=== PATIENT | female | born 2000 | race Caucasian/White ===

== ENCOUNTER 2023-02-17 14:13 | Emergency (ER) | payer BC, SELFPAY ==
[2023-02-17 14:24] VITALS: BP 115/68; PULSE 90; RESP 20; TEMP 37.1; O2SAT 99
[2023-02-17 14:50] LABS: Bilirubin Negative (Negative); Blood Moderate (Negative); Clarity Cloudy (Clear); Glucose Negative (Negative); Ketones Negative (Negative); Leukocyte Esterase Negative (Negative); Nitrite Positive (Negative); Specific Gravity >= 1.030 (1.005-1.025)
--- NOTE | 2023-02-17 14:56 | ED.GENADUL_ITS ---
Discharge Plan Disposition Patient Disposition: Home Condition: Stable Discharge Details Clinical Impression: UTI (urinary tract infection) Primary Care Provider: Parris,Local ED Provider: Pako Mix Home Meds and New Rx's Prescriptions: New cephalexin 250 mg/5 mL suspension for reconstitution 500 mg PO QID 3 Days Qty: 120 0RF Discharge Instructions Instructions: Urinary Tract Infection in Women (ED) Additional Instructions: Antibiotic bottle given in emergency department will last approximately 2-1/2 days, please fill prescription as outpatient to complete antibiotic course for a total of 5 days treatment. Return to emergency department for any worsening symptoms. 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 Afebrile nontoxic no acute distress no nausea no vomiting. Will perform straight catheterization for urinalysis. 15: 15 UA consistent with UTI. Patient nontoxic no acute distress. Will provide first dose of Keflex here in department. Will prescribe liquid formulation to complete course as outpatient. HPI General Date/Time Provider Initiated Documentation: 02/17/23 14:18 . 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 Related Data Home Medications Medication Instructions Recorded Confirmed cephalexin 250 mg/5 mL oral 500 mg (10 mL) PO QID 3 days #120 02/17/23 suspension mL Previous Rx's Medication Instructions Recorded cephalexin 250 mg/5 mL oral 500 mg (10 mL) PO QID 3 days #120 02/17/23 suspension mL Allergies Allergy/AdvReac Type Severity Reaction Status Date / Time gabapentin Allergy Severe Other (See Unverified 02/17/23 14:22 Comment) baclofen Allergy Intermediate Agitation Unverified 02/17/23 14:22 viaxone Allergy Intermediate Skin Rash Uncoded 02/17/23 14:22 General Stated Complaint: Urinary CARLOS A: 3 Review of Systems Narrative: Review of Systems Constitutional: negative Eyes: negative ENT: negative Cardiovascular: negative Respiratory: negative Gastrointestinal: negative : Concentrated foul-smelling urine Musculoskeletal: negative Skin: negative Neurologic: negative Psych: negative PFSH All Active Problems (Updated 02/17/23 @ 15:15 by Pako Mix MD) UTI (urinary tract infection) (Acute) Social History Smoking/Tobacco Use Status: Never Smoking risk assessment performed?: Yes Alcohol Intake: never Exam Narrative Exam Narrative: Physical Examination General: alert, awake, cooperative, resting comfortably, no acute distress HEENT: normocephalic, atraumatic; PERRL, EOM intact, conjunctiva normal; no nasal discharge; moist mucous membranes Neck: supple, trachea midline; full ROM Chest: normal to inspection Respiratory: normal respiratory effort Skin: no lesions, rashes or trauma appreciated Course Vital Signs Vital signs: Vital Signs Temperature 37.1 C 02/17/23 14:24 Pulse 90 02/17/23 14:24 Respiratory Rate 20 02/17/23 14:24 Blood Pressure 115/68 02/17/23 14:24 Pulse Oximetry 99 02/17/23 14:24 Temperature 37.1 C 02/17/23 14:24 Temperature Source Oral 02/17/23 14:24 Pulse 90 02/17/23 14:24 Respiratory Rate 20 02/17/23 14:24 Respiratory Effort Normal 02/17/23 14:29 Blood Pressure 115/68 02/17/23 14:24 Blood Pressure Position Sitting 02/17/23 14:24 Pulse Oximetry 99 02/17/23 14:24 Oxygen Delivery Method Room Air 02/17/23 14:24 Oxygen Flow Rate 0 02/17/23 14:24
[2023-02-17 14:59] LABS: Bacteria Many HPF (Negative); Crystals Negative HPF (Negative); Epithelial Cells Few HPF (Negative)
[2023-02-17 15:00] LABS: C & S Indicated? Yes; Casts Negative LPF (Negative); Mucus Trace (Negative)
[2023-02-17] MEDS: Cephalexin 250 MG/5 ML 100 ML BTL 500 MG PO (15:18)
== END 2023-02-17 15:23 | disposition home or self-care (01) ==
LOC: ER 15:21
PROVIDERS: Emergency Provider Emergency Medicine
DX: N39.0 Urinary tract infection, site not specified (principal)
CPT/HCPCS: 87077; 99283; 81003; 81015; 87086; 87186; 99284